=== PATIENT | female | born 1940 | race Caucasian/White ===

== ENCOUNTER 2018-11-19 10:58 | Emergency (ER) | payer OTHER ==
[2018-11-19] MEDS ORDERED: NA CHLORIDE 0.9% 1,000 ML ONE (13:06)
[2018-11-19] MEDS ORDERED: ONDANSETRON 4 MG/2 ML VIAL ONE (13:06)
[2018-11-19 13:24] LABS: Absolute Lymphocytes (CBC) 0.5 K/uL (0.7-4.9); Absolute Monocytes 0.9 K/uL (0.1-1.3); Absolute Neutrophil 10.5 K/uL (1.8-8.0); Basophils % 0.4 % (0-1.3); Eosinophils % 1.4 % (0-4.4); Hematocrit 40.6 % (36.0-45.0); Lymphocytes % 3.9 % (15.3-44.8); MPV 8.9 fL (7.6-11.3); Monocytes % 7.4 % (3.3-12.3); RBC Red Blood Cell Count 4.53 M/uL (3.86-4.86)
[2018-11-19 13:30] LABS: Albumin 3.4 g/dL (3.4-5.0); Bilirubin Direct 0.1 mg/dL (0-0.2); Bilirubin Total 0.5 mg/dL (0.2-1.0); Potassium 4.3 mmol/L (3.5-5.1); Protein, Total 7.9 g/dL (6.4-8.2)
[2018-11-19 14:08] LABS: Platelet Estimate ADEQ; Platelets, Giant FEW; Urine White Blood Cell Casts OK
[2018-11-19 14:09] LABS: Blood Morphology Comment NOT SEEN (NOT SEEN)
--- NOTE | 2018-11-19 14:51 | RAD REPORT ---
EXAM DESCRIPTION: CT - Abdomen Pelvis W Contrast - 11/19/2018 2:37 pm CLINICAL HISTORY: Abdominal pain with vomiting and diarrhea COMPARISON: 2016 TECHNIQUE: Computed axial tomography of the abdomen pelvis was obtained. 100 cc Isovue-300 was admin istered intravenously. Oral contrast was not requested which limits evaluation of bowel. All CT scans are performed using dose optimization technique as appropriate and may include automated exposure control or mA/KV adjustment according to patient size. FINDINGS: The liver, spleen, pancreas, adrenal and kidneys appear unremarkable. Portion of the left colon has been resected. Diverticula stem from the colon without evidence of dive rticulitis. Fluid is present within nondilated small bowel IMPRESSION: Fluid within nondilated small bowel may indicate an enteritis
--- NOTE | 2018-11-19 15:11 | EDPHYS ---
Physician Documentation [facility] Name: Jessica Torrez Age: 78 yrs Sex: Female : 1940 Arrival Date: 11/19/2018 Time: 11:01 Bed 15 Private MD: Lacey Hadley C ED Physician Martin Leach HPI: 11/19 14:40 This 78 yrs old Female presents to ER via Ambulatory with complaints of kb Vomiting/Diarrhea. 14:40 The patient presents to the emergency department with nausea, vomiting, diarrhea, kb abdominal pain. Onset: The symptoms/episode began/occurred just prior to arrival. Possible causes: sick contacts, by family. The symptoms are aggravated by nothing. The symptoms are alleviated by nothing. Associated signs and symptoms: Pertinent positives: abdominal pain, diarrhea, nausea, vomiting, Pertinent negatives: anorexia, belching, constipation, dysuria, fever, flatulence, GI bleeding, hematuria, vaginal discharge. Severity of symptoms: At their worst the symptoms were moderate in the emergency department the symptoms are unchanged. The patient has not experienced similar symptoms in the past, but family has similar symptoms. The patient has not recently seen a physician. Pt reports n/v/d that started this morning. Soreness to entire abd due to vomiting. States everyone in the family has had similar symptoms. "I'm the last stop." . Historical: - Allergies: 11:14 Erythromycin; ph 11:14 Codeine; ph 11:14 Demerol; ph - PMHx: 11:14 Hypertension; ph - PSHx: 11:14 Hysterectomy; Cholecystectomy; colon resection; ph - Immunization history:: Adult Immunizations up to date. - Social history:: Smoking status: unknown. - Ebola Screening: : Patient denies travel to an Ebola-affected area in the 21 days before illness onset. ROS: 14:42 Constitutional: Negative for fever, chills, and weight loss, Neck: Negative for injury, kb pain, and swelling, Cardiovascular: Negative for chest pain, palpitations, and edema, Respiratory: Negative for shortness of breath, cough, wheezing, and pleuritic chest pain, Back: Negative for injury and pain, : Negative for injury, bleeding, discharge, and swelling, MS/Extremity: Negative for injury and deformity, Skin: Negative for injury, rash, and discoloration, Neuro: Negative for headache, weakness, numbness, tingling, and seizure. 14:42 Abdomen/GI: Positive for abdominal pain, nausea, vomiting, and diarrhea, Negative for constipation, abdominal cramps, abdominal distension, anorexia. Exam: 14:42 Constitutional: This is a well developed, well nourished patient who is awake, alert, kb and in no acute distress. Head/Face: Normocephalic, atraumatic. Chest/axilla: Normal chest wall appearance and motion. Nontender with no deformity. No lesions are appreciated. Cardiovascular: Regular rate and rhythm with a normal S1 and S2. No gallops, murmurs, or rubs. Normal PMI, no JVD. No pulse deficits. Respiratory: Lungs have equal breath sounds bilaterally, clear to auscultation and percussion. No rales, rhonchi or wheezes noted. No increased work of breathing, no retractions or nasal flaring. Abdomen/GI: Soft, non-tender, with normal bowel sounds. No distension or tympany. No guarding or rebound. No evidence of tenderness throughout. Back: No spinal tenderness. No costovertebral tenderness. Full range of motion. Skin: Warm, dry with normal turgor. Normal color with no rashes, no lesions, and no evidence of cellulitis. MS/ Extremity: Pulses equal, no cyanosis. Neurovascular intact. Full, normal range of motion. Neuro: Awake and alert, GCS 15, oriented to person, place, time, and situation. Cranial nerves II-XII grossly intact. Motor strength 5/5 in all extremities. Sensory grossly intact. Cerebellar exam normal. Normal gait. Vital Signs: 11:13 BP 125 / 58; Pulse 60; Resp 18; Temp 98.1; Pulse Ox 100% on R/A; Weight 79.83 kg; ph 13:03 BP 125 / 65; Pulse 58; Resp 19; Pulse Ox 96% on R/A; aj1 16:57 BP 127 / 72; Pulse 62; Resp 18; Pulse Ox 99% on R/A; aj1 MDM: 12:38 Patient medically screened. kb 14:42 Data reviewed: vital signs, nurses notes. Data interpreted: Pulse oximetry: on room air kb is 96 %. Interpretation: normal. 14:54 Counseling: I had a detailed discussion with the patient and/or guardian regarding: the kb historical points, exam findings, and any diagnostic results supporting the discharge/admit diagnosis, lab results, radiology results, the need for outpatient follow up, a family practitioner, to return to the emergency department if symptoms worsen or persist or if there are any questions or concerns that arise at home. 11/19 12:44 Order name: Basic Metabolic Panel; Complete Time: 13:31 kb 11/19 12:44 Order name: CBC with Diff; Complete Time: 14:11 kb 11/19 12:44 Order name: Hepatic Function; Complete Time: 13:31 kb 11/19 12:44 Order name: Lipase; Complete Time: 13:31 kb 11/19 13:37 Order name: CBC Smear Scan; Complete Time: 14:11 EDMS 11/19 14:06 Order name: CT Abd/Pelvis - W/Contrast; Complete Time: 14:54 kb 11/19 12:44 Order name: IV Saline Lock; Complete Time: 13:00 kb 11/19 12:44 Order name: Labs collected and sent; Complete Time: 13:00 kb 11/19 14:54 Order name: PO challenge; Complete Time: 16:46 kb Administered Medications: 13:08 Drug: NS 0.9% 1000 ml Route: IV; Rate: 1000 ml; Site: right antecubital; hb 14:00 Follow up: IV Status: Completed infusion; IV Intake: 1000ml aj1 13:08 Drug: Zofran 4 mg Route: IVP; Site: right antecubital; hb 14:00 Follow up: Response: No adverse reaction aj1 Disposition: 11/19/18 15:09 Discharged to Home. Impression: Noninfective gastroenteritis and colitis, unspecified. - Condition is Stable. - Discharge Instructions: Food Choices to Help Relieve Diarrhea, Adult, Viral Gastroenteritis, Adult, [id number]. - Prescriptions for Bentyl 20 mg Oral Tablet - take 1 tablet by ORAL route every 6 hours As needed; 20 tablet. Zofran 4 mg Oral Tablet - take 1 tablet by ORAL route every 6 hours As needed; 20 tablet. - Medication Reconciliation Form, Thank You Letter, Antibiotic Education, Prescription Opioid Use form. - Follow up: Emergency Department; When: As needed; Reason: Worsening of condition. Follow up: Private Physician; When: 2 - 3 days; Reason: Recheck today's complaints, Continuance of care, Re-evaluation by your physician. Addendum: 11/21/2018 15:30 Co-signature as Attending Physician, Martin Leach MD. m a2 Signatures: Dispatcher [employer] Italia Alvarado, LOC PERES-Radha Bonilla, RN RN aj1 Pavithra Hogue RN RN Gail Almaraz, RN RN Martin Leach MD MD ma2 Corrections: (The following items were deleted from the chart) 11/19 16:58 15:09 11/19/2018 15:09 Discharged to Home. Impression: Noninfective gastroenteritis and aj1 colitis, unspecified. Condition is Stable. Forms are Medication Reconciliation Form, Thank You Letter, Antibiotic Education, Prescription Opioid Use. Follow up: Emergency Department; When: As needed; Reason: Worsening of condition. Follow up: Private Physician; When: 2 - 3 days; Reason: Recheck today's complaints, Continuance of care, Re-evaluation by your physician. kb
--- NOTE | 2018-11-19 15:11 | ER ---
Nurse's Notes [facility] Name: Jessica Torrez Age: 78 yrs Sex: Female : 1940 Arrival Date: 11/19/2018 Time: 11:01 Bed 15 Private MD: Lacey Hadley C Diagnosis: Noninfective gastroenteritis and colitis, unspecified Presentation: 11/19 11:11 Presenting complaint: Patient states: N/V/D since this morning, also reports epigastric ph pain, seen at urgent care dx w/ epigastric tenderness and dehydration and sent here. Transition of care: patient was not received from another setting of care. Onset of symptoms was November 19, 2018. Risk Assessment: Do you want to hurt yourself or someone else?. Care prior to arrival: None. 11:11 Method Of Arrival: Ambulatory ph 11:11 Acuity: JEFF 3 ph 16:56 Initial Sepsis Screen: Does the patient meet any 2 criteria? No. Patient's initial aj1 sepsis screen is negative. Does the patient have a suspected source of infection? No. Patient's initial sepsis screen is negative. Historical: - Allergies: 11:14 Erythromycin; ph 11:14 Codeine; ph 11:14 Demerol; ph - PMHx: 11:14 Hypertension; ph - PSHx: 11:14 Hysterectomy; Cholecystectomy; colon resection; ph - Immunization history:: Adult Immunizations up to date. - Social history:: Smoking status: unknown. - Ebola Screening: : Patient denies travel to an Ebola-affected area in the 21 days before illness onset. Screenin:03 Abuse screen: Denies threats or abuse. Denies injuries from another. Nutritional aj1 screening: No deficits noted. Tuberculosis screening: No symptoms or risk factors identified. 16:56 Fall Risk None identified. aj1 Assessment: 13:03 General: Appears in no apparent distress. comfortable, Behavior is calm, cooperative, aj1 appropriate for age. Pain: Complains of pain in epigastric area Pain does not radiate. Pain currently is 3 out of 10 on a pain scale. Neuro: Level of Consciousness is awake, alert, obeys commands, Oriented to person, place, time, situation. Cardiovascular: Patient's skin is warm and dry. Respiratory: Airway is patent Respiratory effort is even, unlabored, Respiratory pattern is regular, symmetrical. GI: Abdomen is non-distended, Reports upper abdominal pain, nausea, vomiting. : No signs and/or symptoms were reported regarding the genitourinary system. EENT: No signs and/or symptoms were reported regarding the EENT system. Derm: No signs and/or symptoms reported regarding the dermatologic system. Skin is pink, warm \T\ dry. normal. Musculoskeletal: No signs and/or symptoms reported regarding the musculoskeletal system. Circulation, motion, and sensation intact. 14:05 Reassessment: Patient appears in no apparent distress at this time. No changes from aj1 previously documented assessment. Patient and/or family updated on plan of care and expected duration. Pain level reassessed. Patient is alert, oriented x 3, equal unlabored respirations, skin warm/dry/pink. 15:05 Reassessment: Patient appears in no apparent distress at this time. No changes from aj1 previously documented assessment. Patient and/or family updated on plan of care and expected duration. Pain level reassessed. Patient is alert, oriented x 3, equal unlabored respirations, skin warm/dry/pink. 15:47 Reassessment: PO challenge initiated. aj1 16:05 Reassessment: Patient appears in no apparent distress at this time. No changes from aj1 previously documented assessment. Patient and/or family updated on plan of care and expected duration. Pain level reassessed. Patient is alert, oriented x 3, equal unlabored respirations, skin warm/dry/pink. 16:57 Reassessment: Patient appears in no apparent distress at this time. No changes from aj1 previously documented assessment. Patient and/or family updated on plan of care and expected duration. Pain level reassessed. Patient is alert, oriented x 3, equal unlabored respirations, skin warm/dry/pink. Vital Signs: 11:13 BP 125 / 58; Pulse 60; Resp 18; Temp 98.1; Pulse Ox 100% on R/A; Weight 79.83 kg; ph 13:03 BP 125 / 65; Pulse 58; Resp 19; Pulse Ox 96% on R/A; aj1 16:57 BP 127 / 72; Pulse 62; Resp 18; Pulse Ox 99% on R/A; aj1 ED Course: 11:01 Patient arrived in ED. rg4 11:01 Lacey Hadley MD is Private Physician. rg4 11:13 Triage completed. ph 11:14 Arm band placed on Patient placed in waiting room, Patient notified of wait time. ph 12:01 Italia Henderson F[facility]-C [facility]. kb 12:01 Martin Leach MD is Attending Physician. kb 12:44 Radha Del Angel, RN is Primary Nurse. aj1 13:01 Inserted saline lock: 20 gauge 24 gauge antecubital area, using aseptic technique. hb Blood collected. 13:03 Patient has correct armband on for positive identification. Bed in low position. Call aj1 light in reach. Side rails up X 1. 13:03 No provider procedures requiring assistance completed. aj1 14:36 CT completed. Patient tolerated procedure well. Patient moved to CT via wheelchair. vm2 Patient moved back from CT. 14:38 CT Abd/Pelvis - W/Contrast In Process Unspecified. EDMS 16:46 IV discontinued, intact, bleeding controlled, No redness/swelling at site. Pressure em dressing applied. Administered Medications: 13:08 Drug: NS 0.9% 1000 ml Route: IV; Rate: 1000 ml; Site: right antecubital; hb 14:00 Follow up: IV Status: Completed infusion; IV Intake: 1000ml aj1 13:08 Drug: Zofran 4 mg Route: IVP; Site: right antecubital; hb 14:00 Follow up: Response: No adverse reaction aj1 Intake: 14:00 IV: 1000ml; Total: 1000ml. aj1 Outcome: 15:09 Discharge ordered by . kb 16:46 Discharged to home ambulatory, with family. em 16:46 Condition: good 16:46 Discharge instructions given to patient, Instructed on discharge instructions, follow up and referral plans. medication usage, Demonstrated understanding of instructions, follow-up care, medications, Prescriptions given X 2. 16:58 Patient left the ED. aj1 Signatures: Dispatcher [employer] EDFL Italia Henderson FNP-C FNP-Radha Bonilla, RN RN aj1 Yasamni Pitts LVN LVN em Hall, Patricia, RN RN Gail Britton, Denice Domingo RN, Victoria 2
== END 2018-11-19 16:58 | disposition home or self-care (01) ==
LOC: ER 10:58
DX: K52.9 Noninfective gastroenteritis and colitis, unspecified (principal); I10 Essential (primary) hypertension; Z88.3 Allergy status to other anti-infective agents; Z88.5 Allergy status to narcotic agent
CPT/HCPCS: 36415; 74177; 80048; 80076; 83690; 85025; 96361; 96374; 99284; J2405; J7030; Q9967